=== PATIENT | female | born 1950 | race Caucasian/White ===

== ENCOUNTER 2016-11-25 12:01 | Emergency (ER) | payer MEDICARE ==
[~2016-11-25] VITALS: Ht 172.7 cm; Wt 87.3 kg
--- NOTE | 2016-11-25 12:09 | ED.REPORT ---
HPI-Chest Pain 40 and Over Date of Service Nov 25, 2016 ED Provider: Dr. Niranjan Jones MD A 66 year old female with a history of chronic back pain presents to the ED with back pain pain that became increasingly worse 6 days ago. Patient was seen in the [place] ED on 11/22 for identical symptoms and they believed her symptoms were due to thickening of esophagus after CT angio of abdomen and pelvis was negative. She has been taking 4 oxycodone per day since symptom onset. Her current back pain feels similar to her chronic pain but significantly more severe. Patient also reports chest pain and left shoulder pain. The pain in her chest is exacerbated by deep breath and the pain in her back is exacerbated by bending over and movement. Her back pain was recently exacerbated by bending down to pet her dog. She denies any recent fever, chills , diaphoresis, nausea, weakness, dense numbness/tingling in her lower extremities or bowel/bladder incontinence. Current medication list include 300 mg of gabapentin, cyclobenzaprine, diazepam, Sertraline and thyroid replacement medication. Nursing Notes Stated Complaint: CHEST PAIN Nursing Notes Reviewed: Yes Allergies: Coded Allergies: No Known Allergies (Unverified , 11/25/16) Scheduled PRN oxyCODONE-Acetaminophen 5-325 mg (oxyCODONE-Acetaminophen 5-325 mg) 1 Each Tablet 1-3 TAB PO Q4H PRN PRN For Pain Max 12 tabs in 24 hours General Time Seen by MD: 12:08 Chief Complaint Back pain Hx Obtained From: Patient Arrived By: Walk-in Sudden in Onset?: No Onset Occurred: 6 days ago Symptom Duration: Since onset Location: : Back Quality: Painful Radiation: : Does not radiate Migration/Movement: Reports: Chest to back Severity: Current: Moderate Severity: Maximum: Severe Associated with: Denies: Numbness/Tingling Pertinent Negative: Pt denies other symptoms Exacerbated by: Deep breath (chest), Movement (back) Pertinent Negative: Relieved by nothing Recent Healthcare: No recent doctor visit, No recent hospitalization Risk Factors )( CAD Risk Stratification Risk factors reviewed )( TAD Risk Stratification Risk factors reviewed )( PE Risk Stratification Risk factors reviewed Past Medical History Past Medical History Chronic back pain Past Surgical History None reported. Smoking History Never Smoker Social History Alcohol Use: Denies alcohol use Other Social History: Good social support, Local resident Ambulatory Status Independent Review of Systems Constitutional: Denies: Chills, Fever Cardiovascular: Reports: Chest pain GI: Denies: Nausea, Vomiting Musculoskeletal: Reports: Back pain, Joint pain (L shoulder pain) Skin: Denies Diaphoresis Neurologic: Denies: Numbness, Weakness Complete sys rev & neg: except as marked. Female: Denies: Incontinence Physical Exam Initial Vital Signs Vital Signs (First) Date Time Temp Pulse Resp B/P Pulse Ox O2 Delivery O2 Flow Rate FiO2 11/25/16 12:13 36.2 95 20 139/83 96 Room Air 11/25/16 14:35 2 Initial VS: Reviewed Head / Eyes: Atraumatic, Normocephalic, PERRL Neck: Supple, Non-tender, Full range of motion Extremities: Vascular intact, Neuro intact, No swelling, No tenderness Skin: Warm, Dry, No cyanosis Psychiatric: Mood/affect normal, Behavior normal, Normal thought content General/Constitutional: Awake, Alert, No acute distress, Well appearing, Well developed Respiratory / Chest: Atraumatic, Breath sounds NL, Breath sounds = bilat, No respiratory distress Cardiovascular: Heart rate NL, Regular rhythm, Heart sounds NL Abdomen: Atraumatic, Soft, Non-tender Back: Atraumatic Straight Leg Raise: Positive: Strt leg raise + L 40 deg (45 degrees), Strt leg raise + R 10 deg Neurologic: Oriented X3, Speech NL, No motor deficits, No sensory deficits, CN II - XII intact Interpretation & Diagnostics Lab Results Interpretation Result Diagram: 11/25/16 1250 Test 11/25/16 12:50 D-Dimer 1.10mg/L FEU (<0.50) Sodium Level 136mEq/L (134-144) Potassium Level 3.7mEq/L (3.5-5.2) Chloride Level 98mEq/L (97-108) Carbon Dioxide Level 23mmol/L (18-29) Blood Urea Nitrogen 19mg/dL (8-27) Creatinine 0.75mg/dL (0.57-1.00) Estimat Glomerular Filtration Rate 111mL/min (>59) Glucose Level 112mg/dL (60-99) Calcium Level 9.9mg/dL (8.5-10.1) Troponin T < 0.010ug/L (0.0-0.011) ECG Interpretation ECG Interpretation: Urgent Care EKG Sinus Rhythm Time: 12:17 Interpreted by: ED physician CT Chest Interpretation IMPRESSION: 1. No central pulmonary embolism. There is enlargement of the pulmonary arteries suggesting pulmonary arterial hypertension. 2. New small pericardial effusion. 3. New small bilateral pleural effusions with cardiomegaly and probable pulmonary edema suggesting congestive heart failure. 4. Left infrahilar consolidation suggestive of pneumonia and possibly aspiration given the presence of bibasilar opacities. Dictated by: Ran Jean M.D. on 11/25/2016 at 15:08 Study type: CT pulm angiogram Interpretation / Wet Read by: Interpret - Radiologist Re-Eval/Medical Decision Med Decision/Clinical Course I reviewed the ED note from [facility] in [place] from 11/22/2016. Dr. Gomez did a complete workup including serial troponins, d-dimer which was negative and CT angiography of the chest abdomen pelvis which also was negative. I will repeat the d-dimer today and another troponin. I do not believe that there is evidence sufficient to warrant concern for acute ischemia , pulmonary embolism or aortic dissection in the chest at this time barring abnormalities and the testing that I am going to do today. Because of the elevated d-dimer, I went ahead and did a CT chest which reveals the pleural effusions and minimal pericardial effusion. Believe these are most likely explained by her severe inactivity because of her back pain but further workup may be necessary and I did relay this to the patient Time of Eval: 13:38 Patient Status: Condition improved, Pain improved Re-Evaluation/Progress Note: Pain has significantly improved. She is informed of the plan to obtain a CT scan to rule-out PE. All questions about MRI scan and admission are discussed. Time of Eval: 15:21 Patient Status: Condition improved Re-Evaluation/Progress Note: Patient passes the road test. She is informed of her CT results. Discussed plan to discharge with pain management and follow-up with PCP. Counseled Regarding: Diagnosis, Lab results, Need for follow-up, When/why to return to ED Discharge & Departure Primary Impression: Lumbosacral strain Encounter type: initial encounter Qualified Code: S39.012A - Strain of muscle, fascia and tendon of lower back, initial encounter Additional Impression: Pleural effusion Disposition: Home Discharge Condition All VS Reviewed: Yes Condition: Improved Patient Instructions: Back Pain (ED), Pleural Effusion (ED), Sciatica (ED) Additional Instructions: Thank you for trusting us with your care this afternoon. Your emergency department results including CT and lab results are reassuring that there is no dangerous cause for concern at this time. Your pain should improve within the next few days. See the referral to the primary care physician to schedule a follow up appointment in the next 2-3 days for a recheck if pain persists. Your CT did not reveal any evidence of a pulmonary embolism, however, it did reveal some small amount of fluid in your lungs and the pericardium and this will likely require follow up. You may want to consider getting an echocardiogram if the fluid does not resolve. This fluid is likely the cause for your chest pain and left shoulder pain. I believe that your back pain is likely due to sciatica, which is a pinched nerve somewhere in your low back. Moderate activity will help your back heal faster. Take 1 800 mg of ibuprofen every 8 hours for pain. In addition to the ibuprofen , take all 1-3 oxycodone/APAP every 4 hours as needed for more severe pain. *If you begin to experience drowsiness (ex. someone wakes you to take your pain medication), take 1 less oxycodone. *If the pain persists, take up to 3 oxycodone at one time. Please return to the emergency department if you begin to develop any new or worsening conditions including any shortness of breath, worsening chest pain, worsening back pain, fevers, chills, nausea, vomiting, "foot" drop, numbness/ tingling/weakness in your extremities, or bowel/bladder incontinence. This medication may cause drowsiness and constipation. Please do not drink, drive or use acetaminophen while using this medication. Use MiraLax to help relieve constipation and make sure to drink plenty of fluids. Referrals: [facility] Att[facility] Portions of this note were transcribed by Alyssa Francis. I, Dr. Jones personally performed the history, physical exam and medical decision-making; I reviewed and confirmed the accuracy of the information in the transcribed note. Signed by: Coby Matute, 11/25/16 [id number]. Niranjan Jones MD Nov 25, 2016 12:08 ALYSSA FRANCIS Nov 25, 2016 12:17
[2016-11-25 12:13] VITALS: BP 139/83; PULSE 95; RESP 20; O2SAT 96
[2016-11-25] MEDS ORDERED: HYDROmorphone 1 mg/mL Inj IM ONE (12:25)
[2016-11-25 14:35] VITALS: BP_SYST 107; BP_DIAS 39; BP_DIAS 69; PULSE 77; PULSE 85; RESP 20; O2SAT 93; O2SAT 99
--- NOTE | 2016-11-25 15:17 | DRSVH ---
PROCEDURE: CT ANGIO CHEST PULMONARY EMBOLISM ([id number]) INDICATIONS: chest pain/dyspnea TECHNIQUE: After the administration of intravenous contrast, 2 mm thick sections acquired from the pulmonary api antonio to the posterior costophrenic angles. 3-dimensional maximum intensity projection (MIP) coronal a nd sagittal reformats were then acquired through the thorax. For radiation dose reduction, the follo wing was used: automated exposure control, adjustment of mA and/or kV according to patient size. COMPARISON: [facility], CT, ANGIO CHEST ABDOMEN PELVIS, 11/22/2016, 20:52. FINDINGS: Image quality: There is mild motion artifact. Pulmonary arteries: Pulmonary arteries demonstrate no intraluminal filling defects to suggest centra l pulmonary embolism. There is enlargement of the pulmonary arteries suggesting pulmonary hypertensi on. Lungs and pleura: There are small bilateral pleural effusions with associated compressive atelectasis . There is also perihilar consolidation in the left lower lobe. There our bilateral indistinct grou nd glass opacities suggestive of bony edema. Mediastinum: Heart size is enlarged with a new pericardial effusion. No mediastinal or hilar adenop athy. Thoracic aorta is normal in caliber and enhancement. Esophagus is normal in caliber, with a s mall hiatal hernia. Bones and chest wall: No suspicious bony lesions. Ribs and thoracic spine appear intact throughout. Thyroid gland demonstrates no discrete nodules. No axillary or supraclavicular adenopathy. Abdomen: Visualized upper abdominal solid organs appear normal in the early arterial phase of enhanc ement. IMPRESSION: 1. No central pulmonary embolism. There is enlargement of the pulmonary arteries suggesting pulmona ry arterial hypertension. 2. New small pericardial effusion. 3. New small bilateral pleural effusions with cardiomegaly and probable pulmonary edema suggesting c ongestive heart failure. 4. Left infrahilar consolidation suggestive of pneumonia and possibly aspiration given the presence of bibasilar opacities. Dictated by: Ran Jean M.D. on 11/25/2016 at 15:08 Approved by: Ran Jaen M.D. on 11/25/2016 at 15:15
[2016-11-25 15:48] VITALS: BP 107/39; PULSE 85; RESP 20; O2SAT 93
[2016-11-25] MEDS ORDERED: OXYC1TAB24 PO (15:54)
== END 2016-11-25 15:46 | disposition home or self-care (01) ==
LOC: SED 12:01
DX: S39.021A Laceration of muscle, fascia and tendon of abdomen, initial encounter (principal); X50.1XXA Overexertion from prolonged static or awkward postures, initial encounter; Y93.89 Activity, other specified; Y92.89 Other specified places as the place of occurrence of the external cause; Y99.8 Other external cause status; J90 Pleural effusion, not elsewhere classified; M25.512 Pain in left shoulder
CPT/HCPCS: 36415; 71275; 80048; 84484; 85378; 93005; 96372; 99285; G0463; J1170; J1885; Q9967